=== PATIENT | male | born 1995 | race Caucasian/White ===

== ENCOUNTER 2021-07-11 23:28 | Emergency (ER) | payer MEDICAID, OTHER ==
[~2021-07-11] VITALS: Ht 195.6 cm; Wt 109.1 kg
[2021-07-12 00:05] VITALS: BP 145/86
[2021-07-12] MEDS ORDERED: ketorolac trometh inj. 60 MG/2 ML VIAL IM ONE (01:00)
[2021-07-12] MEDS ORDERED: iohexol 300mg/ml 100ml inj. ONE (01:03)
[2021-07-12 01:30] LABS: BASOPHILS % (AUTO) 0.3 % (0-1); EOSINOPHILS # (AUTO) 0.3 X10'3 (0-0.9); EOSINOPHILS % (AUTO) 2.7 % (0-6); HEMATOCRIT 44.6 % (42.0-52.0); HEMOGLOBIN 15.3 g/dl (14.0-17.9); LYMPHOCYTES # (AUTO) 1.3 X10'3 (1.1-4.8); MEAN CORPUSCULAR HEMOGLOBIN 31.1 PG (27.0-31.0); MEAN CORPUSCULAR HGB CONC 34.3 g/dL (33.0-36.5); MEAN CORPUSCULAR VOLUME 90.5 FL (78-98); MEAN PLATELET VOLUME 8.1 FL (7.4-10.4); MONOCYTES # (AUTO) 1.1 X10'3 (0-0.9); MONOCYTES % (AUTO) 8.9 % (2-12); NEUTROPHILS # (AUTO) 9.8 X10'3 (1.8-7.7); NEUTROPHILS % (AUTO) 78.1 % (42-75); PLATELET COUNT 258 X10'3 (140-440); RED BLOOD COUNT 4.93 X10'6 (4.70-6.10); RED CELL DISTRIBUTION WIDTH 13.1 % (11.5-14.5); WHITE BLOOD COUNT 12.6 X10'3 (4.5-11.0)
[2021-07-12 01:40] LABS: ALBUMIN 4.5 G/DL (3.4-5.0); ANION GAP 11 (8-16); BLOOD UREA NITROGEN 20 MG/DL (7-18); BUN/CREATININE RATIO 17.4 (5.4-32.0); CALCIUM 8.8 MG/DL (8.5-10.1); CHLORIDE 102 MMOL/L (99-107); CREATININE 1.15 MG/DL (0.60-1.10); GLUCOSE 112 MG/DL (70-104); POTASSIUM 4.1 MMOL/L (3.5-5.1); SODIUM 139 MMOL/L (135-145); TOTAL CARBON DIOXIDE 26.3 MMOL/L (24-32); eGFR 77 ML/MIN
[2021-07-12] MEDS ORDERED: AMOX-117 PO (04:25)
[2021-07-12] MEDS ORDERED: amox tr/potassium clavulanate 875/125mg TAB PO ONE (04:30)
[2021-07-12] MEDS ORDERED: HYDR-3965 PO (04:31)
== END 2021-07-12 04:36 | disposition home or self-care (01) ==
LOC: ER 23:28
DX: K12.2 Cellulitis and abscess of mouth (principal); Z79.899 Other long term (current) drug therapy
CPT/HCPCS: 36415; 70491; 80048; 85025; 96372; 99285; J1885; Q9967